=== PATIENT | female | born 1950 | race Caucasian/White ===

== ENCOUNTER 2018-06-15 01:29 | Inpatient (IN) | payer OTHER ==
[~2018-06-15] VITALS: Ht 160 cm; Wt 60.8 kg
[~2018-06-15 01:29] MED LIST: XALATAN2.5 ML OPH
[2018-06-15] MEDS ORDERED: ASPIRIN EC81 M1 PO (10:44)
[2018-06-15] MEDS ORDERED: DILAUDID2 M1 PO (10:44)
[2018-06-15] MEDS ORDERED: MIRALAX17 G1 PO (10:44)
[2018-06-15] MEDS ORDERED: COLACE100 M1 PO (10:44)
--- NOTE | 2018-06-15 10:46 | Patient Discharge Instructions ---
Discharge Instructions General Discharge Information You were seen/treated for: Left hip osteoarthritis You had these procedures: Left total hip arthroplasty Watch for these problems: Fever over 100.4 Redness around or drainage from wound Unable to bear weight on left lower extremity Chest pain or shortness of breath Do not soak the wound: Yes No bath, but you may shower: Yes Other wound care: Daily dry dressing change Diet Continue normal diet: Yes Activity Activity Self Limited: Yes Activity Limited to: Weight bear as tolerated (with rolling walker) Acute Coronary Syndrome Inclusion Criteria At DC or during hospital stay patient has or had the following: ACS DIAGNOSIS No Discharge Core Measures Meds if any: Prescribed or Continued at Discharge Meds if any: NOT Prescribed or Continued at Discharge Congestive Heart Failure Inclusion Criteria At DC or during hospital stay patient has or had the following: CHF DIAGNOSIS No Discharge Core Measures Meds if any: Prescribed or Continued at Discharge Meds if any: NOT Prescribed or Continued at Discharge Cerebrovascular accident Inclusion Criteria At DC or during hospital stay patient has or had the following: CVA/TIA Diagnosis No Discharge Core Measures Meds if any: Prescribed or Continued at Discharge Meds if any: NOT Prescribed or Continued at Discharge Venous thromboembolism Inclusion Criteria VTE Diagnosis No VTE Type NONE VTE Confirmed by (Test) NONE Discharge Core Measures - Per Current guidelines, there needs to be overlap - treatment for the first 5 days of Warfarin therapy. - If discharged on Warfarin prior to 5 days of - overlap therapy, the patient will need to be - assessed for post discharge needs including - *Post discharge parental anticoagulation - *Warfarin and/or parental anticoagulation education - *Follow up date to check INR post discharge At least 5 days overlap therapy as Inpatient No Meds if any: Prescribed or Continued at Discharge Note: Overlap Therapy is Warfarin and Anticoagulant Meds if any: NOT Prescribed or Continued at Discharge
--- NOTE | 2018-06-15 10:47 | Admission Core Measures ---
Acute Coronary Syndrome (CM) ACS Core Measures Acute Coronary Syndrome Diagnosis No Congestive Heart Failure (NEW) CHF Core Measures Congestive Heart Failure Diagnosis No Cerebrovascular Accident CVA Core Measures CVA/TIA Diagnosis No Venous Thromboembolism VTE Core Pk (View Protocol) VTE Risk Factors Surgery No Mechanical VTE Prophylaxis d/t N/A MechProphylax Ordered No VTE Pharm Prophylaxis d/t NA PharmProphylax ordered Problem List As ranked by this Provider includes Assessment & Plan 1. Unilateral primary osteoarthritis, left hip HOME MEDS Home Med List Aspirin (Ecotrin*) 81 MG TABLET.DR 1 TAB PO BID DVT PPX Docusate Sodium (Colace) 100 MG CAPSULE 1 CAP PO BID STOOL SOFTENER Hydromorphone HCl (Dilaudid) 2 MG TABLET 1-2 TAB PO Q4-6 PRN PRN PAIN Latanoprost (Xalatan) 0.005 % DROPS 1 GTT OPH QPM GLAUCOMA (Reported) Polyethylene Glycol 3350 (Miralax) 17 GRAM POWD.PACK 1 PAC PO DAILY CONSTIPATION
--- NOTE | 2018-06-15 10:48 | Surg Short-stay <48hrs Dis Sum ---
Visit Information Visit Dates Admission Date: 06/15/18 Discharge Date: 06/16/18 Surgical Short Stay DC Summary Admission Diagnosis: Left hip osteoarthritis Final Diagnosis: Same Procedure(s): Left total hip arthroplasty Summary/Significant Findings: Patient tolerated the procedure well. Postoperatively, she was tolerating a regular diet, voiding spontaneously, pain was well controlled with oral medication, and she was cleared for discharge to home by physical therapy. Discharge instructions were reviewed with the patient. Prescriptions were sent to the pharmacy Condition at Discharge: Good Discharge Disposition: home health services Discharge instructions provided to patient/family: Yes Post discharge follow-up plan: Follow-up with Dr. Dang is an outpatient in 6 weeks. Call sooner with any questions or concerns
--- NOTE | 2018-06-15 14:36 | RADIOLOGY REPORT ---
EXAMINATION: XR HIP, LEFT CLINICAL INFORMATION: Status post left hip replacement COMPARISON: None TECHNIQUE: Two views of the left hip. FINDINGS: Prosthetic components of the left total hip arthroplasty are appropriately aligned. No periprosthetic fracture. Gas from recent surgery is present in the surrounding soft tissues. IMPRESSION: Normal postoperative appearance of the left total hip prosthesis.
--- NOTE | 2018-06-15 14:40 | Operative Report ---
Operative/Inv Procedure Report Surgery Date: 06/15/18 Name of Procedure: Left total hip replacement Pre-Operative Diagnosis: Primary left hip DJD Post-Operative Diagnosis: Same Estimated Blood Loss: 250 Surgeon/Global Risk Management Director: Mendez HUGHES,Angel Luis Foss Anesthesia: block Operative/Procedure Note Note: Description of Procedure: The patient was taken to the operating room and positively identified. After induction of spinal anesthesia and administration of appropriate pre-operative antibiotics, the patient was positioned supine on the operating room table and all bony prominences were well padded. After performing a surgical timeout, the left lower extremity was prepped and draped in the usual sterile fashion. A direct anterior approach was made to the left hip. The incision was carried sharply through superficial soft tissues to the level of the fascia. Meticulous hemostasis was maintained with Bovie electocautery. The fascia over the tensor fascia mago muscle was opened sharply and the interval between the TFL and the sartorius was entered bluntly taking care to stay lateral to the lateral femoral cutaneous nerve. Retractors were placed around the femoral neck and the pericapsular fat was identified. The ascending branches of the lateral femoral circumflex vessels were identified and carefully coagulated. The pericapsular fat and anterior capsule were then resected. A napkin ring osteotomy was performed and the femoral head was removed without difficulty. Attention was then turned to the acetabulum. After appropriate placement of retractors, the acetabulum was exposed. Soft tissue was cleaned from the acetabular margin and notch. Overhanging osteophytes were removed and the teardrop was exposed. The acetabulum was then sequentially reamed to accept a 52 mm [place] Tritanium hemispherical solid shell. This was impacted into place in the appropriate position and fitted with a 32 mm eccentric Trident X3 zero degree polyethylene insert. Attention was then turned to the femur. After performing the appropriate ligament releases, the proximal femur was exposed. It was then sequentially broached to accept a size 3 [place] Accolade 2 132 neck angle stem. This was trialed for leg length and stability. The trial component was removed and the final component was impacted into place. The trunnion was carefully cleaned and fit with a 32 mm, +4 Biol[employer] delta ceramic femoral head. The hip was reduced and put through a full range of motion and found to be stable. The articular space was then irrigated with sterile saline. The periarticular soft tissues were infilitrated with Marcaine. The fascial layer was closed with interrupted #1 vicryl suture and the skin was re-approximated with interrupted 2 -0 vicryl. The skin was closed with a running 3-0 V-Lock suture. Steri-strips and a sterile dressing were applied. The patient was awakened and taken to the recovery room in satisfactory condition.
--- NOTE | 2018-06-15 15:03 | PN- Orthopedic ---
Subjective Subjective: POC pt recovering well in PACU, no pain tolerating po, no nausea. has not been OOB yet. Denies paresthesias Denies cp/sob and flores Objective Vital Signs and I&Os VSS, afebrile Physical Exam: gen- NAD resp- clear cardiac-RRR abd- soft, NT ext- left hip dressing clean and dry, thigh is soft. no calf tenderness. No leg shortening or rotation. distal sensory and motor function intact. 2+DP pulse Current Medications: Current Medications Sig/Celestina Start time Last Medication Dose Route Stop Time Status Admin Acetaminophen 0 .STK-MED ONE 06/15 1103 DC PO Acetaminophen 975 MG ONCE 06/15 0000 AC PO 06/15 235 Cefazolin Sodium 2,000 MG ONCE 06/15 0000 NR IV 06/15 2359 Latanoprost 1 GTT QPM 06/15 2100 AC OPH Oxycodone HCl 0 .STK-MED ONE 06/15 1103 DC PO Oxycodone HCl 10 MG ONCE 06/15 0000 AC PO 06/15 2359 Assessment/Plan Assessment/Plan 68yo F SP L MELY. stable in PACU pain management PT- WBAT with Rollign walker dvt ppx- asa and ALPS regular diet, IVF overnight FU AM labs dressing change POD2 IS regular home meds DC planning- likely home tomorrow Core Measures Venous Thromboembolism VTE Risk Factors Surgery No Mechanical VTE Prophylaxis d/t N/A MechProphylax Ordered No VTE Pharm Prophylaxis d/t NA PharmProphylax ordered
[2018-06-15 17:10] VITALS: BP 118/68
[2018-06-15 19:27] VITALS: BP 120/66
[2018-06-15 22:17] VITALS: BP 108/58
[2018-06-16 00:01] VITALS: BP 101/58
[2018-06-16 04:07] VITALS: BP 110/68
--- NOTE | 2018-06-16 07:37 | PN- Orthopedic ---
Subjective Subjective: PT in bed, no pain. Denies paresthesias. Has not been OOB yet. tolerating diet, Voiding. Denies CP/SOB Objective Vital Signs and I&Os Vital Signs Date Time Temp Pulse Resp B/P B/P Pulse O2 O2 Flow FiO2 Mean Ox Delivery Rate 06/16 0407 97.7 77 20 110/68 96 Room Air 06/16 0001 98.3 85 20 101/58 93 Room Air 06/15 2217 98.6 87 20 108/58 96 Room Air 06/15 2144 Room Air 06/15 1927 97.9 88 20 120/66 95 Room Air 06/15 1710 98.0 73 18 118/68 94 Room Air Intake & Output 06/16 0800 06/16 0000 06/15 1600 06/15 0800 06/15 0000 06/14 1600 Intake Total 120 1005 Output Total Balance 120 1005 Intake, IV 525 Intake, Oral 120 480 Patient 134 lb Weight Weight Reported by Patient Measurement Method Physical Exam: gen- NAD resp- clear cardiac- RRR abd- soft, NT ext- left thigh dressing with some serosand drainage on dressing at superior aspect. thigh is soft, nontender. distal sensory and motor function intact. 2+ DP pulse. no leg shortening or rotation Current Medications: Current Medications Sig/Celestina Start time Last Medication Dose Route Stop Time Status Admin Acetaminophen 1,000 MG Q6 06/15 1800 AC 06/16 IV 06/16 1201 0549 Acetaminophen 0 .STK-MED ONE 06/15 1103 DC PO Acetaminophen 975 MG ONCE 06/15 0000 DC PO 06/15 2359 Aspirin 81 MG BID 06/15 2100 AC 06/15 PO 2030 Cefazolin Sodium 2 GM IQ8 06/15 1600 DC 06/16 N/A 1 UNIT IV 06/16 0029 0055 Cefazolin Sodium 2,000 MG ONCE 06/15 0000 DC IV 06/15 2359 Dexamethasone 4 MG .STK-MED ONE 06/15 1052 DC IM 06/15 1053 Dextrose/Sodium 1,000 ML .[id number] 06/15 1700 AC 06/16 Chloride IV 0550 Docusate Sodium 100 MG BID 06/15 2100 AC 06/15 PO 2030 Fentanyl Citrate 100 MCG .STK-MED ONE 06/15 1051 DC IM 06/15 1052 Hydromorphone HCl 2 MG Q4P PRN 06/15 1700 AC PO Hydromorphone HCl 4 MG Q4P PRN 06/15 1700 AC PO Latanoprost 1 GTT QPM 06/15 2100 AC 06/15 OPH 2031 Latanoprost 1 GTT QPM 06/15 2100 DC OPH Midazolam HCl 2 MG .STK-MED ONE 06/15 1051 DC IM 06/15 1052 Morphine Sulfate 2 MG Q2P PRN 06/15 1700 AC IV Ondansetron HCl 4 MG Q6P PRN 06/15 1700 AC IV Oxycodone HCl 0 .STK-MED ONE 06/15 1103 DC PO Oxycodone HCl 10 MG ONCE 06/15 0000 DC PO 06/15 2359 Polyethylene Glycol 17 GM DAILY 06/16 0900 AC PO Tranexamic Acid 2,000 MG .STK-MED ONE 06/15 1051 DC IV 06/15 1052 Results Last 48 Hours of Labs: Laboratory Tests 06/16 0653 Chemistry Sodium Pending Potassium Pending Chloride Pending Carbon Dioxide Pending Anion Gap Pending BUN Pending Creatinine Pending BUN/Creatinine Ratio Pending Hematology CBC w Diff Pending WBC Pending RBC Pending Hgb Pending Hct Pending MCV Pending MCH Pending MCHC Pending RDW Pending Plt Count Pending MPV Pending Assessment/Plan Assessment/Plan 68yo F SP L MELY POD1 pain management PT- WBAT with Ermias ghotra, PT TO SEE HER THIS MORNING dvt ppx- asa and ALPS regular diet, will DC IVF this morning FU AM labs encourage IS regular home meds DC planning- likely home today pending clearence by PT Core Measures Venous Thromboembolism VTE Risk Factors Surgery No Mechanical VTE Prophylaxis d/t N/A MechProphylax Ordered No VTE Pharm Prophylaxis d/t NA PharmProphylax ordered
[2018-06-16 08:20] VITALS: BP 142/74
[2018-06-16 08:24] LABS: ABSOLUTE BASOPHIL COUNT 0 /CUMM (0.0-0.2); ABSOLUTE EOSINOPHIL COUNT 0 /CUMM (0.0-0.7); ABSOLUTE GRANULOCYTE CT 8.6 /CUMM (1.4-6.5); ABSOLUTE LYMPH COUNT 2.1 /CUMM (1.2-3.4); ABSOLUTE MONOCYTE COUNT 1.6 /CUMM (0.10-0.60); BASOPHIL % 0.2 % (0.0-2.0); EOSINOPHIL % 0.4 % (0-5); GRANULOCYTE % 69.5 % (42.2-75.2); HEMATOCRIT 33.8 % (37-47); MEAN CORPUSCULAR HGB 31.1 PG (27.0-31.0); MEAN CORPUSCULAR HGB CONC 33.8 G/DL (33.0-37.0); MEAN CORPUSCULAR VOLUME 91.8 FL (81.0-99.0); MEAN PLATELET VOLUME 8.7 FL (7.4-10.4); PLATELET COUNT 191 /CUMM (130-400); RBC DISTRIBUTION WIDTH 13.3 % (11.5-14.5); RED BLOOD CELL CT 3.68 /CUMM (4.20-5.40); WHITE BLOOD CELL COUNT 12.3 /CUMM (4.8-10.8)
== END 2018-06-16 12:54 | disposition home health service (06) | DRG 470 ==
LOC: SDA 01:29 → ENRESERV 14:28 → ENTRNSPT 15:42 → EDTRNSPT 15:46 → EDTRNSPTSTS 15:46 → 2NB 15:58 → CMPTRNSPT 16:22 → ENTRNSPT 06-16 12:42 → EDTRNSPTSTS 06-16 12:46 → EDTRNSPT 06-16 12:46 → 2NB 06-16 12:54 → CMPTRNSPT 06-16 13:13
PROVIDERS: Physician Assistant Surgical
PROC: 0SRB03A Replacement of Left Hip Joint with Ceramic Synthetic Substitute, Uncemented, Open Approach (ICD-10-PCS; principal; 2018-06-15)
DX: M16.12 Unilateral primary osteoarthritis, left hip (principal); H40.9 Unspecified glaucoma; Z96.641 Presence of right artificial hip joint
CPT/HCPCS: 2NBSP; 36415; 73502-LT; 82436; 97110-GO; 97116-GO; 97161-GP; J0131; J0690; J0735; J1100; J2405; J3490; J7042